=== PATIENT | female | born 1990 | race Caucasian/White ===

== ENCOUNTER → 2025-03-31 17:47 | Outpatient (BNVA) | payer BC, SELFPAY | DX: J02.9 Acute pharyngitis, unspecified (principal) | CPT/HCPCS: 87880 ==

== ENCOUNTER 2025-06-04 12:07 | Outpatient (CLI) | payer BC, SELFPAY ==
[2025-06-04 13:23] LABS: Vitamin B12 924 pg/mL (232-1245)
== END 2025-06-04 12:08 | disposition home or self-care (01) ==
LOC: LAB 12:09
PROVIDERS: PCP Internal Medicine Cardiovascular Disease; Visit Provider Nurse Practitioner Family
DX: E55.9 Vitamin D deficiency, unspecified (principal); M06.4 Inflammatory polyarthropathy; R53.83 Other fatigue
CPT/HCPCS: 36415; 82607; 82652; 82746; 85651; 86038; 86140